=== PATIENT | male | born 1990 | race Caucasian/White ===

== ENCOUNTER 2017-07-05 07:20 | Day surgery (SDC) | payer BC ==
[~2017-07-05] VITALS: Ht 188 cm; Wt 95.2 kg
[~2017-07-05 07:20] MED LIST: RAPAFLO8 MG PO
--- NOTE | 2017-07-05 11:06 | NUR ---
PT SITTING IN BED, ALERT AND ORIENTED. I COULD TELL THAT PT WAS SOMEWHAT ANXIOUS. HE ADMITTED IT IS HIS FIRST SURGERY. HELPED HIM UNDERSTAND SOME OF WHAT HE COULD EXPECT FAR THE ORDER FOR THE MORNING GOES. PT REQUESTED PRAYER, AND REQUESTED PRAYER BE DIRECTED TO GIVE PT CONFIDENCE THAT THIS WILL WORK. WILL FOLLOW NEEDED
--- NOTE | 2017-07-05 12:26 | NUR ---
07/05/17 1226 Eugenia Powell 1201 PT ARRIVED IN PACU SLEEPY AND SHIVERING. WARM BLANKETS PLACED ON PT. UNABLE TO GET AUTOMATIC BP. MANUAL BP 130/80. 1211 REPOSITIONED TO L SIDE PER DR CLAUDIO. 1216 C/O BLADDER SPASMS. FENTANYL 25MCG GIVEN IVP. 1221 B&O SUPPOSITORY GIVEN FOR BLADDER SPASMS.
[2017-07-05] MEDS ORDERED: LEVAQUIN750 MG PO (13:05)
[2017-07-05] MEDS ORDERED: PERCOCET 5-3251 EACH PO (13:05)
--- NOTE | 2017-07-05 13:56 | NUR ---
LE 1311: SURESH UNCLAMPED AND THE BLADDER IS DRAINED OF 100CC DARK RED/BLOODY URINE. 10CC EMPTIED FROM SURESH BALOON. ALL DONE WEARING PRECAUTIONS PER PROTOCOL
--- NOTE | 2017-07-05 13:57 | NUR ---
PT REQUESTING TO GET UP TO THE RESTROOM TO SEE IF HE CAN URINATE. HE REPORTS THE SENSATION/NEED TO GO BUT THINKS IT IS POSITIONAL. HE IS HELPED UP OOB AND ESCORTED WITH STANDBY ASSIST TO THE RESTROOM.
--- NOTE | 2017-07-05 14:04 | NUR ---
PT UP TO BATHROOM AND ABLE TO URINATE 75ML'S. SPOKE WITH DR. POWERS AND SHE STATES THAT IS ADEQUATE, SHE WOULD LIKE HIM TO HAVE SOME JUICE AND A LITTLE SOMETHING TO EAT BEFORE HE GOES, OTHER THAN SHE SAYS HE IS OK TO DC HOME.
--- NOTE | 2017-07-05 14:31 | NUR ---
PT WAS ABLE TO KEEP CRANBERRY JUICE AND APPLE SAUCE DOWN WITHOUT ISSUES. HE STATES HE IS READY TO GO HOME. DC INSTRUCTIONS ARE VERBALLY GIVEN IN FRONT OF HIS MOM. QUESTIONS ARE ASKED AND ANSWERED. PT INSTRUCTED ON HOW BEST TO GET DRESSED.
--- NOTE | 2017-07-05 14:50 | NUR ---
PT IS DC'D AND WHEELED OUT TO HIS MOM'S CAR. UPON RETURNING TO THE DEPARTMENT THIS RN DISCOVERS THAT SHE INADVERTENTLY OMITTED HAVING THE PT SIGN HIS FORM THAT HE WAS GIVEN DC INSTRUCTIONS AND HAD THE OPPORTUNITY TO ASK QUESTIONS.
--- NOTE | 2017-07-07 05:19 | OR ---
[facility] [address] [facility] [place], [place] [address] Signed DATE OF OPERATION: 07/05/2017 SURGEON: Ayad Powers MD PREOPERATIVE DIAGNOSES: 1. Bladder mass. 2. Lower urinary tract symptoms. POSTOPERATIVE DIAGNOSES: 1. 2.5 cm bladder tumor. 2. Lower urinary tract symptoms, due to bladder outlet obstruction secondary to #1. NAMES OF PROCEDURES: 1. Urethral dilation with Lewis sounds, from 74-91-Tdpmss. 2. Transurethral resection of bladder tumor-small. 3. Intravesical instillation of mitomycin (40 mg in 20 mL). ANESTHESIA: General. ESTIMATED BLOOD LOSS: 20 mL. COMPLICATIONS: None. SPECIMENS: 1. Bladder mass. 2. Bladder mass, deep resection. DRAINS: An 18-Afghan Matt catheter, plugged with a suprapubic tube cap and taped to the patient's abdomen. INDICATIONS FOR PROCEDURE: Jonathan is a very pleasant 26-year-old gentleman, who recently presented to my clinic upon referral from his primary care physician after undergoing a contrasted CT scan, which revealed the presence of a filling defect in his bladder. The patient has been experiencing lower urinary tract symptoms including difficulties voiding, urgency, frequency, and gross hematuria for the past few months or so. A urinary cytology was Electronically Signed By: AYAD POWERS MD 07/07/17 0519 PATIENT NAME: JONATHAN CRISTOBAL OPERATIVE REPORT DATE OF : 89 REPORT #: [id number] PHYSICIAN: AYAD POWERS MD PCP: NO PRIMARY CARE PHYSICIAN REPORT IS CONFIDENTIAL AND NOT TO BE RELEASED WITHOUT AUTHORIZATION [facility] [address] [place], [place] [address] Signed obtained upon presentation to my clinic, which is suspicious for high-grade urothelial cell carcinoma. He underwent a diagnostic cystoscopy approximately a week or so ago, which revealed an approximately 2.5 cm pedunculated bladder mass located on the left superior aspect of the bladder neck. He presents today to undergo definitive resection of the lesion, along with intravesical instillation of mitomycin. OPERATIVE FINDINGS: 1. On cystoscopy, the patient's bilateral ureteral orifices are in their normal anatomic location and effluxing clear urine. He has a noted diffuse grade 2 bladder wall trabeculation, consistent with relatively long-standing bladder outlet obstruction. 2. There is a 2.5 cm smooth walled, pedunculated tumor noted in the left superolateral aspect of the bladder neck. This lesion was removed using a transurethral resectoscope in two phases. The pedunculated tumor was removed and placed in a specimen cup. Deeper resections were also then performed and placed in a separate specimen cup. 3. An 18-Afghan two-way Matt catheter was inserted into the patient's bladder after completion of the resection. A total of 40 mg, in 20 mL of mitomycin was then instilled into the patient's bladder, to be left in place for a total of 80 minutes. The patient changed positions a total of four times to ensure adequate coverage of the mitomycin in the patient's bladder. DESCRIPTION OF PROCEDURE: After informed consent was obtained, the patient was taken back to the operating room. He was transferred from the [facility] to the operative room table, where general anesthesia was induced. He was placed in the dorsal lithotomy position and his genitalia prepped and draped in a standard sterile fashion. His urethra was dilated using Lewis sounds from 18-Afghan to 26-Afghan without difficulty. A 26-Afghan sheath was then inserted into the patient's bladder with the assistance of an obturator. The obturator was then removed and the resectoscope was then inserted into the sheath and a diagnostic cystoscopy was performed. Please see above findings. The pedunculated tumor was located and was resected transurethrally using a 24-Afghan bipolar loop electrode. The pedunculated part of the tumor was resected immediately. The tumor had to be cut into 2-3 different pieces in order to be extracted from the bladder. I then set my sight on the resection bed. I resected the deeper margin at the level of the tumor noted on the bladder neck. I could appreciate some of the resection was prostatic tissue. I then cauterized the resection bed in order to achieve complete hemostasis. These deep resection margins were then placed in a separate specimen cup to be evaluated by Pathology. Once I was satisfied that all of the bleeding from the resection site had been complete, I removed the resectoscope. I also aspirated any residual specimens from the bladder before placing the 18-Afghan two-way Matt catheter. The 40 mg in 20 mL of mitomycin was then instilled into the bladder through the 18-Afghan Matt catheter. The catheter was then taped to the patient's abdomen to ensure that all of the mitomycin remained within the patient's bladder. The procedure was then terminated. The patient Electronically Signed By: AYAD POWERS MD 07/07/17 0519 PATIENT NAME: JONATHAN CRISTOBAL OPERATIVE REPORT DATE OF : 89 REPORT #: [id number] PHYSICIAN: AYAD POWERS MD PCP: NO PRIMARY CARE PHYSICIAN REPORT IS CONFIDENTIAL AND NOT TO BE RELEASED WITHOUT AUTHORIZATION [address] [address] Signed tolerated the procedure well without any complication. He will now be transferred to the Postanesthesia Care Unit in stable condition. DISPOSITION: The patient will continue his mitomycin treatment for a total of 80 minutes, 20 minutes on each side. I have instructed the nurses to drain the mitomycin from the patient's bladder and then remove the Matt catheter. He will be expected to void on his own prior to discharge. He will be sent home with Percocet 5/325, dispense #20 as needed for pain along with Levaquin 750 mg for a total of 10 days. I discussed the details of today's procedure with the patient's mother and answered all their questions. He will be scheduled to return to clinic in approximately 2 to 3 weeks for his first postoperative visit. I told the patient today that I will contact him to discuss his pathology results. MD YASMIN Barton/FLACA /[id number] Copies: ~ Electronically Signed By: AYAD POWERS MD 07/07/17 0519 PATIENT NAME: JONATHAN CRISTOBAL OPERATIVE REPORT DATE OF : 89 REPORT #: [id number] PHYSICIAN: AYAD POWERS MD PCP: NO PRIMARY CARE PHYSICIAN REPORT IS CONFIDENTIAL AND NOT TO BE RELEASED WITHOUT AUTHORIZATION
== END 2017-07-05 14:40 | disposition home or self-care (01) ==
LOC: DS 07:20 → OPS 07:20 → DS 09:15 → OPS 09:15
PROVIDERS: Urology
PROC: 0TBB8ZZ Excision of Bladder, Via Natural or Artificial Opening Endoscopic (ICD-10-PCS; principal; 2017-07-05 08:30)
DX: N30.21 Other chronic cystitis with hematuria (principal); F17.210 Nicotine dependence, cigarettes, uncomplicated; Z79.899 Other long term (current) drug therapy
CPT/HCPCS: 00910; J0696; J2250; J2405; J2704; J3010; J7120